=== PATIENT | female | born 1975 | race Caucasian/White ===

== ENCOUNTER 2019-03-08 16:16 | Inpatient (IN) | payer OTHER ==
[~2019-03-08] VITALS: Ht 172.7 cm; Wt 106.0 kg
[~2019-03-08 16:16] MED LIST: ASCO500 PO; BLACK ELDERBER1 EACH PO; CETI5 PO; Flomax0.4 MG PO; HYDACE5 PO; IBUP800 PO; LEVSOD50 PO; RXHYDACE PO; VITAMIN B PO; Vitamin D2000 UNIT PO
[2019-03-08 18:23] LABS: BASOPHILS ABSOLUTE AUTO 0.07 K/mm3 (0.00-0.23); BASOPHILS PERCENT AUTO 1 % (0-2); EOSINOPHILS PERCENT AUTO 1 % (0-6); Hematocrit 37.2 % (33.0-51.0); Hemoglobin 11.8 g/dL (11.5-16.0); IMMATURE GRAN PERCENT AUTO 0 % (0-1); LYMPHOCYTES PERCENT AUTO 35 % (21-46); MONOCYTES ABSOLUTE AUTO 0.48 K/mm3 (0.16-1.47); MONOCYTES PERCENT AUTO 7 % (4-13); Mean Corpuscular HGB Conc 31.7 g/dL (31.5-36.5); Mean Corpuscular Volume 91 fL (80-100); Mean Platelet Volume 10.1 fL (9.1-12.4); NEUTROPHILS ABSOLUTE AUTO 4.01 K/mm3 (1.96-9.15); NEUTROPHILS PERCENT AUTO 56 % (41-73); Platelet Count 286 K/mm3 (150-400); RDW Coefficient Variation 12.8 % (11.7-14.2); RDW Standard Deviation 42.9 fL (35.1-46.3); Red Blood Cell Count 4.07 M/mm3 (3.80-5.20); White Blood Cell Count 7.16 K/mm3 (4.00-11.30)
[2019-03-10] MEDS ORDERED: METF500 PO (08:37)
--- NOTE | 2019-03-10 08:47 | NUR ---
History, Chart, Medications and Allergies reviewed before start of procedure. Lungs clear T/O to Auscultation. Patient confirms NPO status and agrees with scheduled surgery. Pre-Op teaching done. Pt verbalizes understanding.
--- NOTE | 2019-03-10 13:30 | NUR ---
PT ARRIVED TO ROOM 232 FROM PACU S/P ANALY PT HAS TRANVERSE DRESSING C/D/I WITH SCANT AMT SPOTS PT HAS [place] PAD IN PLACE NO VAG DRAINAGE PT REPORTS INT CRAMP AND PRESSURE AT THE BLADDER FLUSHED TO CHECK FLOWING WELL KPAD GIVEN CL GIVEN ORIENTED TO THE ROOM PT'S FAMILY AT BEDSIDE
--- NOTE | 2019-03-10 13:55 | NUR ---
UNABLE TO TAKE ORAL OXY RETURNED PT DID NOT HAVE EMESIS PHENERGAN GIVEN 12.5 MG IVP WILL GIVEN IV MORPHINE FOR PAIN INSTEAD UNTILL NAUSEA IS RESOLVED
--- NOTE | 2019-03-10 16:06 | NUR ---
PT SLEEPING FAMILY CAME BY STATED THEY WILL BE BACK IN THE MORNING
--- NOTE | 2019-03-10 17:02 | NUR ---
offered pt to move readjusted in bed lowered hob pt stated she would like to lay on her side but worried it will hurt stated she will call if she wants to trial a pillow
--- NOTE | 2019-03-10 17:34 | NUR ---
pt declined dinner
--- NOTE | 2019-03-10 18:24 | NUR ---
DR CORDOBA BY UPDATED HIM RE PT UO TOTAL SINCE ARRIVAL TO THE FLOOR ONE TIME 500 ML LR BOLUS TO BE GIVEN
--- NOTE | 2019-03-11 04:13 | NUR ---
SHIFT SUMMARY PT IS A/O. TOLERATING PO INTAKE AND AMBULATES IND WITH STANDBY ASSIST FOR IV LINES ETC. S/P OPEN HYSTERECTOMY ON 03/10/19. PAIN MANAGED WITH PO PAIN MEDS PER ORDERS. B/P HAS BEEN SLIGHTLY LOW, HOWEVER PT REPORTS THIS IS NORMAL FOR HER. [place] HAS BEEN IN PLACE THROUGH THE NIGHT. ASSISTED WITH ADL'S PRN.
[2019-03-11 05:22] LABS: BASOPHILS ABSOLUTE AUTO 0.02 K/mm3 (0.00-0.23); BASOPHILS PERCENT AUTO 0 % (0-2); EOSINOPHILS PERCENT AUTO 0 % (0-6); Hematocrit 33.5 % (33.0-51.0); Hemoglobin 10.6 g/dL (11.5-16.0); IMMATURE GRAN ABSOLUTE AUTO 0.06 K/mm3 (0.00-0.10); IMMATURE GRAN PERCENT AUTO 1 % (0-1); LYMPHOCYTES PERCENT AUTO 13 % (21-46); MONOCYTES ABSOLUTE AUTO 1.04 K/mm3 (0.16-1.47); MONOCYTES PERCENT AUTO 9 % (4-13); Mean Corpuscular HGB Conc 31.6 g/dL (31.5-36.5); Mean Corpuscular Volume 92 fL (80-100); Mean Platelet Volume 10.3 fL (9.1-12.4); NEUTROPHILS PERCENT AUTO 78 % (41-73); Platelet Count 231 K/mm3 (150-400); RDW Coefficient Variation 12.8 % (11.7-14.2); RDW Standard Deviation 43.4 fL (35.1-46.3); Red Blood Cell Count 3.66 M/mm3 (3.80-5.20); White Blood Cell Count 12.02 K/mm3 (4.00-11.30)
--- NOTE | 2019-03-11 18:10 | NUR ---
SUMMARY: PT IS POD1 OPEN HYSTER. NO ACUTE CHANGE TODAY. TOOK SERVERAL WALKS, PAIN SEEMS TO BE WELL MANAGED WITH OXYCODONE AND TORADOL. INCISION SITE WNL, PT REPORTS SCANT TO NO VAGINAL BLEED. WILL CTM AND REPORT TO NOC RN
--- NOTE | 2019-03-12 07:52 | NUR ---
POD 2 S/P OPEN HYSTER. PT VSS T/O NIGHT. STERI STRIPS CDI. PAIN MGD PER EMAR W/REP RELIEF. NO SIG VAGINAL BLEEING THIS SHIFT. PT SAMANTHA REG PO, NO C/O N/V, REP NO FLATUS YET. PT VOIDING URINE W/O DIFFICULTY. PT AMB INDEP IN ROOM, IS USING CALL LIGHT FOR ASSISTANCE, PLAN TO D/C HOME TODAY.
[2019-03-12] MEDS ORDERED: BENADRYL25 M1 PO (14:20)
[2019-03-12] MEDS ORDERED: DOCU100 PO (14:21)
[2019-03-12] MEDS ORDERED: IBUP800 PO (14:22)
[2019-03-12] MEDS ORDERED: Percocet 5-3251 EACH PO (14:23)
[2019-03-12] MEDS ORDERED: Milk Of Ma400 MG/5 M PO (14:23)
[2019-03-12] MEDS ORDERED: SIME80CH PO (14:24)
[2019-03-12] MEDS ORDERED: PROM25 PO (14:24)
--- NOTE | 2019-03-13 09:49 | NUR ---
03/13/19 0949 Chica Kumar VERIFICATIONS: EDIT CHART.
== END 2019-03-12 14:45 | disposition home or self-care (01) | DRG 743 ==
LOC: SURS 03-10 07:12 → ORD 03-10 09:00 → PRE IP 03-10 09:00 → EDSTATUS 03-10 09:00 → ORSCMMR 03-10 09:00 → SURS 03-10 13:44
PROVIDERS: ADMIT Obstetrics & Gynecology
PROC: 0UT90ZZ Resection of Uterus, Open Approach (ICD-10-PCS; principal; 2019-03-10 09:00)
PROC: 0UT70ZZ Resection of Bilateral Fallopian Tubes, Open Approach (ICD-10-PCS; 2019-03-10 09:00)
DX: D25.9 Leiomyoma of uterus, unspecified (principal); N92.0 Excessive and frequent menstruation with regular cycle; G89.29 Other chronic pain; R10.2 Pelvic and perineal pain
CPT/HCPCS: 36415; 84702; 85025; 86850; 86900; 86901; 88307; J0690; J1100; J1650; J1885; J2250; J2270; J2405; J2550; J2704; J2710; J3010; J7120; Q0163